=== PATIENT | female | born 1985 | race Caucasian/White ===

== ENCOUNTER → 2022-01-15 | Outpatient (CLI) | payer OTHER ==
[2022-01-15 13:50] LABS: HEMATOCRIT 35.5 % (36.0-47.0); HEMOGLOBIN 11.7 g/dl (12.0-15.5); MEAN CORPUSCULAR HEMOGLOBIN 31.5 pg (27.0-33.0); MEAN CORPUSCULAR VOLUME 95.7 fl (80.0-96.0); PLATELET COUNT, AUTOMATED 231 10^3/uL (150-450); RED BLOOD COUNT 3.71 10^6/uL (4.00-5.40); WHITE BLOOD COUNT 7.2 10^3/uL (4.0-10.0)
[2022-01-15 15:33] LABS: GC DNA AMPLIFICATION NEGATIVE (NEGATIVE)
== END ==
LOC: M PLALAB 09:09
PROVIDERS: ATTEND Advanced Practice Midwife
DX: Z34.92 Encounter for supervision of normal pregnancy, unspecified, second trimester (principal); Z3A.00 Weeks of gestation of pregnancy not specified

== ENCOUNTER → 2022-03-08 | Outpatient (CLI) | payer OTHER ==
[2022-03-08 14:34] LABS: ALBUMIN 1.6 GM/DL (3.2-5.2); ALT/SGPT 16 U/L (12-78); BILIRUBIN,TOTAL 0.1 MG/DL (0.2-1.0); BLOOD UREA NITROGEN 9 MG/DL (7-18); CALCIUM LEVEL 8.2 MG/DL (8.5-10.1); CARBON DIOXIDE LEVEL 26 MEQ/L (21-32); CHLORIDE LEVEL 107 MEQ/L (98-107); CREATININE FOR GFR 0.46 MG/DL (0.55-1.30); GLOMERULAR FILTRATION RATE > 60.0 (>60); GLUCOSE, FASTING 83 MG/DL (70-100); POTASSIUM SERUM 4.1 MEQ/L (3.5-5.1); SODIUM LEVEL 138 MEQ/L (136-145); TOTAL PROTEIN 5.2 GM/DL (6.4-8.2)
== END ==
LOC: M PLALAB 10:38
PROVIDERS: ATTEND Advanced Practice Midwife
DX: Z34.93 Encounter for supervision of normal pregnancy, unspecified, third trimester (principal); Z3A.00 Weeks of gestation of pregnancy not specified

== ENCOUNTER 2022-03-23 08:55 | Inpatient (IN) | payer OTHER ==
[2022-03-23] VITALS (8 sets, daily range): BP systolic 95–131; BP diastolic 51–83
[~2022-03-23] VITALS: Ht 160 cm; Wt 70.6 kg
[2022-03-23] MEDS ORDERED: ESSE250T PO (09:14)
[2022-03-23] MEDS ORDERED: MULTTAB20 PO (09:14)
[2022-03-23] MEDS ORDERED: BENA25CA4 PO (09:14)
[2022-03-23] MEDS ORDERED: OMEG10002 PO (09:14)
[2022-03-23] MEDS ORDERED: CALC1TAB42 PO (09:14)
[2022-03-23] MEDS ORDERED: BETAMETHASONE SOLUSPAN 6MG/ML 5ML VIAL (J0702 PER 3MG) IM ONE ×2 (09:15→21:45)
[2022-03-23] MEDS ORDERED: LACTATED RINGER'S 1000 ML IV STA (09:15)
[2022-03-23] MEDS ORDERED: TRANEXAMIC ACID INJection 1,000 MG in NS 100 ML IV PRN (09:15)
[2022-03-23] MEDS ORDERED: CARBOPROST TROMETHAMINE 250 MCG/ML AMP IM PRN (09:15)
[2022-03-23] MEDS ORDERED: LIDOCAINE 1% MDV 20ML VIAL INFIL PRN (09:15)
[2022-03-23] MEDS ORDERED: OXYTOCIN INJ 10 UNITS/ML VIAL (J2590) IM PRN (09:15)
[2022-03-23] MEDS ORDERED: PENICILLIN G POTASSIUM 5 MU IV 5 MU in D5W MINI-BAG PLUS 100 ML IV STA (09:15)
[2022-03-23] MEDS ORDERED: HOME MED LIST COMPLETE! XX SCH (09:15)
[2022-03-23] MEDS ORDERED: METHYLERGONOVINE MALEATE 0.2 MG/ML VIAL (J2210) IM PRN (09:15)
[2022-03-23 10:14] LABS: HEMATOCRIT 35.5 % (36.0-47.0); HEMOGLOBIN 11.7 g/dl (12.0-15.5); MEAN CORPUSCULAR HEMOGLOBIN 29.5 pg (27.0-33.0); MEAN CORPUSCULAR VOLUME 89.4 fl (80.0-96.0); PLATELET COUNT, AUTOMATED 248 10^3/uL (150-450); RED BLOOD COUNT 3.97 10^6/uL (4.00-5.40); WHITE BLOOD COUNT 9.3 10^3/uL (4.0-10.0)
[2022-03-23] MEDS: LR 1,000 ML IV SCH ×2 (10:30→18:41)
[2022-03-23] MEDS: PEN G POT 3,000,000 UNIT/50 ML 3,000,000 UNIT in IV 1 EA IV SCH ×3 (14:02→21:20)
[2022-03-23] MEDS ORDERED: PROMETHAZINE 25MG/ML 1ML VIAL IV ONE ×2 (14:20→21:40)
[2022-03-23] MEDS ORDERED: BUTORPHANOL 2 MG/ML INJ (J0595) IV ONE ×2 (14:20→21:40)
[2022-03-24] VITALS (8 sets, daily range): BP systolic 95–123; BP diastolic 50–75
[2022-03-24] MEDS: LR 1,000 ML IV SCH ×3 (11:21→18:06)
[2022-03-24] MEDS ORDERED: METOCLOPRAMIDE INJ 10MG/2ML VIAL (J2765 PER 1) IV ONE (11:25)
[2022-03-24] MEDS ORDERED: ceFAZolin SOD 2 GM in IV 1 EA IV ONE (11:40)
[2022-03-24] MEDS ORDERED: AZITHROMYCIN INJ 500 MG, VIAL MATE ADAPTER 1 EACH in NS 250 ML IV ONE (11:40)
[2022-03-24] MEDS ORDERED: BICITRA 30ML SOLN UDC PO ONE ×2 (11:40→16:20)
[2022-03-24] MEDS ORDERED: MORPHINE PRES-FREE INJ 10 MG/10 ML VIAL As Ordered ONE (13:58)
[2022-03-24] MEDS ORDERED: ONDANSETRON 4MG 2ML VIAL As Ordered ONE (14:27)
[2022-03-24] MEDS ORDERED: ePHEDrine SULFATE 25 MG/5 ML(5MG/ML) SYRINGE As Ordered ONE (14:30)
[2022-03-24] MEDS ORDERED: PHENYLephrine 500MCG 5ML (100MCG/ML) SYRINGE As Ordered ONE (14:30)
[2022-03-24] MEDS ORDERED: OXYTOCIN 30 UNITS IN 0.9% NaCl 500ML IV BAG (J2590) As Ordered ONE ×2 (14:39→16:12)
[2022-03-24] MEDS ORDERED: KETOROLAC 60MG 2ML VIAL As Ordered ONE (14:44)
[2022-03-24] MEDS ORDERED: NALOXONE INJ 0.4MG/1ML VIAL (J2310 PER 1MG) IV PRN ×2 (15:05)
[2022-03-24] MEDS ORDERED: LR 1,000 ML IV SCH (15:05)
[2022-03-24] MEDS ORDERED: PROMETHAZINE 25MG/ML 1ML VIAL IV PRN (15:05)
[2022-03-24] MEDS ORDERED: **NOTE PATIENT COMMENT** MISC XX SCH (15:05)
[2022-03-24] MEDS ORDERED: fentaNYL 100 MCG/2 ML INJECTION IV PRN (15:05)
[2022-03-24] MEDS ORDERED: ONDANSETRON 4MG 2ML VIAL IV PRN ×2 (15:05→16:15)
[2022-03-24] MEDS ORDERED: diphenhydrAMINE 50MG/ML VIAL IV PRN (15:05)
[2022-03-24] MEDS ORDERED: MEPERIDINE INJ 25 MG/ML VIAL (J2175) IV PRN (15:05)
[2022-03-24] MEDS ORDERED: METOCLOPRAMIDE INJ 10MG/2ML VIAL (J2765 PER 1) IV PRN ×2 (15:05)
[2022-03-24] MEDS ORDERED: oxyCODONE 5MG TAB PO PRN (15:05)
[2022-03-24] MEDS: SLF 3 ML SYR IV SCH ×2 (16:06→23:05)
[2022-03-24] MEDS ORDERED: RHOGAM 300 MCG (1500 IU) INJ (J2790) IM SCH (16:15)
[2022-03-24] MEDS ORDERED: MORPHINE 2 MG/ML 1ML VIAL IV PRN (16:15)
[2022-03-24] MEDS ORDERED: OXYTOCIN DRIP 30 UNITS in IV 1 EA IV SCH (16:15)
[2022-03-24] MEDS ORDERED: ANUSOL HC CREAM 30GM TOP PRN (16:15)
[2022-03-24] MEDS ORDERED: PERCOCET 5MG/325MG TAB PO PRN ×2 (16:15)
[2022-03-24] MEDS ORDERED: SIMETHICONE 80MG CHEW TAB PO PRN (16:15)
[2022-03-24] MEDS ORDERED: LACTATED RINGER'S 1000 ML IV STA (16:16)
[2022-03-24] MEDS: PRENATAL VITAMINS CHEWABLE TABLET PO SCH (17:56)
[2022-03-24] MEDS: DOCUSATE SODIUM 100MG CAPSULE PO SCH (20:51)
[2022-03-24] MEDS: KETOROLAC 30 MG/ML 1ML VIAL IV SCH (22:09)
[2022-03-25 02:00] VITALS: BP 97/53
[2022-03-25] MEDS: KETOROLAC 30 MG/ML 1ML VIAL IV SCH ×2 (04:02→10:14)
[2022-03-25] MEDS: LR 1,000 ML IV SCH (04:07)
[2022-03-25 06:00] VITALS: BP 97/56
[2022-03-25 06:54] LABS: HEMATOCRIT 26.1 % (36.0-47.0); MEAN CORPUSCULAR HEMOGLOBIN 29.3 pg (27.0-33.0); MEAN CORPUSCULAR HGB CONC 32.6 g/dl (32.0-36.5); PLATELET COUNT, AUTOMATED 216 10^3/uL (150-450); WHITE BLOOD COUNT 10.1 10^3/uL (4.0-10.0)
[2022-03-25 07:01] LABS: HEMOGLOBIN 8.5 g/dl (12.0-15.5)
[2022-03-25] MEDS: PRENATAL VITAMINS CHEWABLE TABLET PO SCH (08:49)
[2022-03-25] MEDS: DOCUSATE SODIUM 100MG CAPSULE PO SCH ×2 (08:49→20:47)
[2022-03-25] MEDS: SLF 3 ML SYR IV SCH (08:49)
[2022-03-25 10:00] VITALS: BP 114/55
[2022-03-25 14:00] VITALS: BP 99/54
[2022-03-25] MEDS: ACETAMINOPHEN 500 MG TAB PO PRN (15:42)
[2022-03-25] MEDS: IBUPROFEN 800 MG TAB PO SCH (17:48)
[2022-03-25 18:00] VITALS: BP 117/56
[2022-03-25 22:00] VITALS: BP 110/61
[2022-03-26 02:00] VITALS: BP 110/57
[2022-03-26] MEDS: IBUPROFEN 800 MG TAB PO SCH ×2 (02:20→09:07)
[2022-03-26 06:00] VITALS: BP 131/75
[2022-03-26] MEDS: ACETAMINOPHEN 500 MG TAB PO PRN (07:35)
[2022-03-26] MEDS ORDERED: MEASLES,MUMPS,RUBELLA VACCINE INJ (MMR-II) (90707) SC.IMMUN ONE (09:00)
[2022-03-26] MEDS: DOCUSATE SODIUM 100MG CAPSULE PO SCH (09:06)
[2022-03-26] MEDS: PRENATAL VITAMINS CHEWABLE TABLET PO SCH (09:07)
[2022-03-26] MEDS ORDERED: IBUP80TA PO (09:58)
[2022-03-26] MEDS ORDERED: OXYC1TAB23 PO (09:58)
== END 2022-03-26 10:43 | disposition home or self-care (01) | DRG 540 ==
LOC: M LDO 08:55 → M LDI 09:35 → M OBS 03-24 17:30
PROVIDERS: ADMIT Obstetrics & Gynecology; ATTEND Obstetrics & Gynecology
PROC: 0UB70ZZ Excision of Bilateral Fallopian Tubes, Open Approach (ICD-10-PCS; 2022-03-24)
PROC: 10D00Z1 Extraction of Products of Conception, Low, Open Approach (ICD-10-PCS; principal; 2022-03-24 15:01)
DX: O34.211 Maternal care for low transverse scar from previous cesarean delivery (principal); O60.14X0 Preterm labor third trimester with preterm delivery third trimester, not applicable or unspecified; Z37.0 Single live birth; Z3A.35 35 weeks gestation of pregnancy; Z30.2 Encounter for sterilization; O09.523 Supervision of elderly multigravida, third trimester

== ENCOUNTER → 2022-09-24 | Outpatient (REF) | payer OTHER ==
[~2022-09-24] MED LIST: BENA25CA4 PO; CALC1TAB42 PO; ESSE250T PO; IBUP80TA PO; MULTTAB20 PO; OMEG10002 PO; OXYC1TAB23 PO
== END ==
LOC: M SFHCWAGY 17:56
PROVIDERS: ATTEND Obstetrics & Gynecology
DX: Z12.4 Encounter for screening for malignant neoplasm of cervix (principal)